=== PATIENT | female | born 1970 | race Caucasian/White ===

== ENCOUNTER 2023-12-04 15:35 | Emergency (ER) | payer BC, SELFPAY ==
[2023-12-04 15:37] VITALS: BP 150/101
[2023-12-04 16:01] LABS: % Basophils 0.9 % (0-2); % Eosinophils 5.6 % (0-6); % Immature Granulocytes 0.2 % (0-0.5); % Lymphocytes 26.7 % (20.5-51.1); % Monocytes 6.9 % (1.7-9.3); % Neutrophils 59.7 % (42.2-75.2); Absolute Basophils 0.1 10^3/uL (0-0.2); Absolute Eosinophils 0.5 10^3/uL (0-0.7); Absolute Lymphocytes 2.4 10^3/uL (1.2-3.4); Absolute Monocytes 0.6 10^3/uL (0.1-0.6); Absolute Neutrophils 5.4 10^3/uL (1.4-6.5); Hematocrit 42.8 % (37.0-47.0); Hemoglobin 14.8 g/dL (12.0-16.0); Mean Corp Hgb Conc. 34.6 g/dL (33.0-37.0); Mean Corpuscular Hgb 30.6 pg (27.0-31.0); Mean Corpuscular Volume 88.4 fL (81.0-99.0); Mean Platelet Volume 8.7 fL (7.4-10.4); Nucleated Red Blood Cells % 0 %; Platelet Count 308 10^3/uL (130-400); Red Blood Cell Count 4.84 10^6/uL (4.20-5.40); Red Cell Dist. Width 13.1 % (11.5-14.5); White Blood Cell Count 9.1 10^3/uL (4.8-10.8)
[2023-12-04 16:43] LABS: ALT (SGPT) 24 U/L (0-35); AST (SGOT) 28 U/L (14-36); Albumin 4.8 g/dl (3.5-5.0); Alkaline Phosphatase 41 U/L (38-126); Blood Urea Nitrogen 20 mg/dl (7-17); Calcium 9.9 mg/dl (8.4-10.2); Carbon Dioxide 23 mmol/L (22-30); Chloride 103 mmol/L (98-107); Glucose 282 mg/dl (70-99); Potassium 5.3 mmol/L (3.5-5.1); Sodium 138 mmol/L (135-145); Total Bilirubin 0.4 mg/dl (0.2-1.3); Total Protein 7.1 g/dl (6.3-8.2); eGFR > 60.00
[2023-12-04 16:54] LABS: Troponin I < 0.012 ng/ml
[2023-12-04] MEDS: PEPCID 40 MG PO (18:31)
[2023-12-04] MEDS: MAALOX 30 ML PO (18:31)
--- NOTE | 2023-12-04 18:32 | ED.GENMED ---
History of Present Illness
General
Chief Complaint: Abdominal Pain
Time Seen by Provider: 12/04/23 17:52
History of Present Illness
History of Present Illness:
Patient is a 53-year-old woman with history of cardiomyopathy, hypertension, hyperlipidemia, diabetes presenting to the emergency department with chest pain. Patient states for the past 3 days she is been having midsternal/epigastric chest pain.
Is slowly progressed. Is currently 4 out of 10. It is heaviness in nature. It is not exertional. She is never had exertional chest pain. No shortness of breath. No nausea or vomiting. She has had heartburn that is somewhat similar though not
entirely. No diaphoresis. No nausea or vomiting. No diarrhea. Has been compliant with all her medications.
Past History
Past History
ED Past Medical History: GERD, HTN, Hypercholesterolemia, NIDDM, Psychiatric (Anxiety/depression) and Other (Chronic bronchitis, pneumonia, cardiomyopathy)
ED Past Surgical History: , Gynecological (Tubal ligation), Orthopedic (Bilateral foot reconstruction) and Tonsilectomy
Social History
Tobacco: Smoker
Alcohol: None
Drug: None
Personal:
Living: with family
Employment: Employed
Family History
Family History: Other (father recently dx with cholecystitis)
Phy Exam
Physical Exam
Physical Exam:
GENERAL: in no acute distress
HEENT: normocephalic, extraocular movements intact, moist oral mucosa
NECK: normal inspection
RESPIRATORY: no respiratory distress, clear to auscultation bilaterally
CARDIOVASCULAR: regular rate and rhythm
ABDOMEN/: soft, non-distended, mild epigastric tenderness,, no rebound or guarding
EXTREMITIES: non-tender, no edema/swelling
NEUROLOGIC: awake and alert, moves all extremities
SKIN: warm
Course
Orders/Labs/Results
Orders:
Orders
12/04/23 15:42
Electrocardiogram (*1) Urgent
Reason for Study: Chest Pain
EKG- Treatment ONCE
12/04/23 15:51
Complete Blood Count/With Diff Urgent
Comprehensive Metabolic Panel Urgent
Lipase Urgent
Comment: ADDON
Troponin I Urgent
12/04/23 18:12
Add On- LAB Stat
Tests Added?: lipase
Famotidine [Pepcid] 40 mg PO NOW STA
Mag Hydrox/Al Hydrox/Simeth [Maalox] 30 ml PO NOW STA
Viscous Lidocaine 2% [Xylocaine Viscous Cup] 15 ml PO ONCE ONE
12/04/23 18:36
CR Chest - 2 Views Urgent
Comment:
Reason For Exam: chest pain
Abnormal Lab Results
12/04/23
15:51
Potassium 5.3 H mmol/L
(3.5-5.1)
BUN 20 H mg/dl
(7-17)
Glucose 282 H mg/dl
(70-99)
12/04/23 15:51
12/04/23 15:51
Vital Signs
Initial and Last Documented VS:
Initial Vital Signs
Temp Pulse Resp BP Pulse Ox
97.3 F 88 16 150/101 99
12/04/23 15:37 12/04/23 15:37 12/04/23 15:37 12/04/23 15:37 12/04/23 15:37
Last Documented Vital Signs
Temp Pulse Resp BP Pulse Ox
97.3 F 80 22 150/101 99
12/04/23 15:37 12/04/23 18:06 12/04/23 18:06 12/04/23 15:37 12/04/23 18:05
MDM/Problems Addressed
Differential Diagnosis Includes:
Patient is a 53-year-old woman with history of hypertension, hyperlipidemia, diabetes, cardiomyopathy, bronchitis presenting to the emergency department with epigastric/midsternal chest pain for the past 2 days that has been constant in nature and
it is not exertional. Vitals here notable for an elevated blood pressure. Exam does show mild epigastric tenderness. Differential is broad but consists of pancreatitis versus atypical ACS versus peptic ulcer disease versus biliary pathology.
Blood work obtained prior to evaluation is unremarkable. Will add on lipase. EKG per my interpretation normal sinus rhythm with left bundle branch block which is similar to prior. Will obtain chest x-ray. Will give GI cocktail. Consider
obtaining CT scan however will hold off at this time
*Critical Care Note
Total Time (30-74mins, 75-104mins- exclusive of procedures): Not Applicable
Update Note
Update Note:
Lipase normal. On reevaluation patient states the pain has completely resolved the GI cocktail. She does note that she has been eating increased red meat as well as lemon and rosebud in her water. She did have a metallic taste in her mouth earlier
as well. Patient advised on Pepcid and omeprazole. She will follow-up with her GI doctor as well as PCP for continued management. She has been tested for H. pylori and has been negative. Strict return precautions given. Will discharge at this
time.
ED Attending Note
-
Portions of this chart may have been created with voice recognition software.� Occasional wrong word or��sound alike� substitutions may have occurred due to the inherent limitations of voice recognition software.
Discharge Plan
Departure
Patient Disposition: Home (Routine Discharge)
Date of Disposition: 12/04/23
Time of Disposition: 19:54
Patient with high blood pressure during this ER visit?: Yes
Discharge Problem:
Epigastric abdominal pain
Instructions: Acid Reflux and GERD in Adults (DC)
Prescriptions:
No Action
lovastatin 40 MG tablet
20 mg PO DAILY
lamotrigine 25 MG tablet, chewable dispersible
75 mg PO DAILY
aspirin [Aspir-Low] 81 MG tablet,delayed release (DR/EC)
81 mg PO DAILY
glipizide 2.5 MG tablet extended release 24hr
15 mg PO DAILY
lisinopril 10 MG tablet
10 mg PO DAILY
naproxen sodium [Aleve] 220 MG tablet
220 mg PO Q6 PRN (Reason: pain)
cholecalciferol (vitamin D3) 2,000 UNIT tablet
5,000 unit PO DAILY
multivitamin [Multi-Day] 1 EACH tablet
10 tab PO DAILY
oxycodone-acetaminophen 5 MG/325 MG tablet
1 tab PO Q4HPRN PRN (Reason: Severe pain) Qty: 10 0RF
ibuprofen 600 MG tablet
600 mg PO Q6 Qty: 20 0RF
sucralfate [Carafate] 1 GM/10 ML suspension
1 gm PO ACHS Qty: 560 0RF
pantoprazole 40 MG tablet,delayed release (DR/EC)
40 mg PO DAILY Qty: 30 0RF
ketorolac 10 MG tablet
10 mg PO TID Qty: 7 0RF
Rx Instructions:
do not combine with any other NSAIDS
levofloxacin 750 mg tablet
750 mg PO DAILY 7 Days Qty: 7 0RF
metronidazole 500 mg tablet
500 mg PO BID 7 Days Qty: 14 0RF
Referrals:
Fadia Hall MD [Family Provider] -
Activity Restrictions/Additional Instructions:
You were evaluated in the Emergency Department today for epigastric pain, which is most likely due to irritation of the lining of your stomach. Your symptoms improved with medication in the ED. You can take Mylanta, which is available over the
counter, to help manage your symptoms. Please also take Pepcid and omeprazole as discussed avoid spicy or acidic foods.
Please follow up with your primary care physician within two days.
Return to the Emergency Department if you experience shortness of breath, worsening or uncontrolled abdominal or chest pain, headache, light headedness, feeling faint, nausea, vomiting, bloody vomit or stools, black tarry stools, or any other
concerning symptoms.
Thank you for choosing us for your care.
Interventions
Interventions:
*General Assessment Last Done: 12/04/23 15:37
*Neglect/Abuse Screening Last Done: 12/04/23 15:37
*ED COVID-19 Vaccine History Last Done: 12/04/23 15:37
OM-Hyqagf-Achjsjumck Assessment Last Done: 12/04/23 18:37
Discharge Date and Time
Print Language: AMHARIC
[2023-12-04] MEDS: XYLOCAINE VISCOUS CUP 15 ML PO (18:33)
[2023-12-04 18:35] VITALS: BMI 37.0
[2023-12-04 18:37] VITALS: BP 143/83
[2023-12-04 18:45] LABS: Lipase 193 U/L (23-300)
== END 2023-12-04 20:25 | disposition home or self-care (01) ==
LOC: EMR 15:35
PROVIDERS: Physician Assistant; EMERGENCY PHYSICIAN Student in an Organized Health Care Education/Training Program; FAMILY PHYSICIAN Internal Medicine
DX: R07.89 Other chest pain (principal); E11.9 Type 2 diabetes mellitus without complications; E78.00 Pure hypercholesterolemia, unspecified; I10 Essential (primary) hypertension; I42.9 Cardiomyopathy, unspecified; K21.9 Gastro-esophageal reflux disease without esophagitis; F17.200 Nicotine dependence, unspecified, uncomplicated; Z98.51 Tubal ligation status
CPT/HCPCS: 99283; 71046; 80053; 83690; 84484; 85025; 93005

== ENCOUNTER → 2024-04-05 06:59 | Outpatient (REF) | payer BC, SELFPAY | LOC: WDC 06:59 | PROVIDERS: ATTENDING PHYSICIAN Obstetrics & Gynecology Gynecology; FAMILY PHYSICIAN Internal Medicine | DX: Z12.31 Encounter for screening mammogram for malignant neoplasm of breast (principal) | CPT/HCPCS: 77063; 77067 ==

== ENCOUNTER 2024-10-19 10:13 | Emergency (ER) | payer OTHER, SELFPAY ==
[2024-10-19 10:21] VITALS: BP 165/96
[2024-10-19 10:46] LABS: Hematocrit 42.7 % (37.0-47.0); Hemoglobin 14.6 g/dL (12.0-16.0); Mean Corp Hgb Conc. 34.2 g/dL (33.0-37.0); Mean Corpuscular Volume 89.9 fL (81.0-99.0); Nucleated Red Blood Cells % 0 %; Platelet Count 268 10^3/uL (130-400); Red Cell Dist. Width 12.8 % (11.5-14.5)
[2024-10-19 11:07] LABS: ALT (SGPT) 18 U/L (0-35); AST (SGOT) 20 U/L (14-36); Albumin 4.6 g/dl (3.5-5.0); Alkaline Phosphatase 40 U/L (38-126); Blood Urea Nitrogen 10 mg/dl (7-17); Calcium 9.4 mg/dl (8.4-10.2); Carbon Dioxide 25 mmol/L (22-30); Chloride 107 mmol/L (98-107); Glucose 212 mg/dl (70-99); Potassium 4.8 mmol/L (3.5-5.1); Sodium 138 mmol/L (135-145); Total Protein 6.8 g/dl (6.3-8.2); eGFR > 60.00
--- NOTE | 2024-10-19 11:17 | ED.GENMED ---
History of Present Illness
General
Chief Complaint: Headache
Source: patient
Exam Limitations: none
Time Seen by Provider: 10/19/24 11:01
Nursing documentation reviewed up to this point in time: agreed with
History of Present Illness
History of Present Illness:
54-year-old female diabetic hypertensive headache yesterday gradual onset did vomit x 1 nausea lights do bother her eyes mildly, does not typically get a lot of headaches has had some mosquito bites no known tick bites, has been out in the heat a
lot recently blood sugars have been high recently, no slurred speech no arm or leg weakness no chest pain or shortness of breath, patient does have some sinus congestion
Past History
Past History
ED Past Medical History: GERD, HTN, Hypercholesterolemia, NIDDM, Psychiatric (Anxiety/depression) and Other (Chronic bronchitis, pneumonia, cardiomyopathy)
ED Past Surgical History: , Gynecological (Tubal ligation), Orthopedic (Bilateral foot reconstruction) and Tonsilectomy
Social History
Tobacco: Smoker
Alcohol: None
Drug: None
Personal:
Living: with family
Employment: Employed
Review of Systems
Review of Systems
All Other Systems: Not applicable
Constitutional: Denies fever
EENT: Reports other (Sinus congestion)
Respiratory: Reports no symptoms
Cardiac: Denies chest pain
ABD/GI: Reports nausea and vomiting
Musculoskeletal: Reports no symptoms
Skin: Reports no symptoms
Neurological: Reports headache
Psychiatric: Reports no symptoms
Phy Exam
Physical Exam
Physical Exam:
Physical Exam
General: no apparent distress, not acutely ill
Neck: Nasally voice
Heart: s1/s2 regular rate and rhythm, no murmur. equal radial pulses.
Lungs: no acute respiratory distress. clear bilaterally
Abdomen: Nontender
Neuro: alert and oriented. no focal neurological deficits
Skin: no rash
Psychiatric: well kept. interactive and cooperative
Extremities: no edema.
Course
Orders/Labs/Results
Orders:
Orders
10/19/24 10:34
Complete Blood Count/With Diff Urgent
Comprehensive Metabolic Panel Urgent
10/19/24 11:17
CT Sinuses W/o Iv Contrast Urgent
Comment:
Reason For Exam: headacge
IV Insert/Care/Rem.- Treatment PRN
0.9% Sodium Chloride 1000 ml [Nss] 1,000 ml IV BOLUS
10/19/24 11:18
CT Head W/o Iv Contrast Urgent
Comment:
Reason For Exam: headacge
Ondansetron Injectable [Zofran] 4 mg IV NOW STA
10/19/24 12:09
Lyme Progressive Urgent
10/19/24 13:48
Acetaminophen [Tylenol] 650 mg PO NOW STA
Ketorolac [Toradol] 30 mg IV NOW STA
Abnormal Lab Results
10/19/24
10:34
Lymphocytes % 19.0 L %
(20.5-51.1)
Glucose 212 H mg/dl
(70-99)
10/19/24 10:34
10/19/24 10:34
Vital Signs
Initial and Last Documented VS:
Initial Vital Signs
Temp Pulse Resp BP Pulse Ox
98.3 F 80 18 165/96 94
10/19/24 10:21 10/19/24 10:21 10/19/24 10:21 10/19/24 10:21 10/19/24 10:21
Last Documented Vital Signs
Temp Pulse Resp BP Pulse Ox
98.3 F 75 16 150/68 99
10/19/24 10:21 10/19/24 13:39 10/19/24 13:39 10/19/24 13:39 10/19/24 13:39
MDM/Problems Addressed
Differential Diagnosis Includes:
Tension, sinus headache, migraine headache, doubt subarachnoid or ELEVATOR [employer]ENDANT infection
MDM/Problems Addressed:
Headache nausea vomit
Chronic conditions affecting care: DM and HTN
Acute Exacerbation and/or Progression of Chronic Illness: DM and HTN
*Pulse Oximetry
SaO2: 94
Oxygen Mode of Delivery: Room air
Patient hypoxic: no
*Critical Care Note
Total Time (30-74mins, 75-104mins- exclusive of procedures): Not Applicable
Update Note
Update Note:
Update labs noted CT reports noted
215, patient feeling better smiling eating, still says she has a mild headache ordered some Toradol reviewed sinusitis with her, like to hold off on systemic steroids as she is diabetic
ED Attending Note
-
Portions of this chart may have been created with voice recognition software.� Occasional wrong word or��sound alike� substitutions may have occurred due to the inherent limitations of voice recognition software.
Discharge Plan
Departure
Patient Disposition: Home (Routine Discharge)
Date of Disposition: 10/19/24
Time of Disposition: 14:26
Patient with high blood pressure during this ER visit?: No
Condition: Good
Discharge Problem:
Sinusitis
Instructions: Headache, Adult (DC), Sinusitis in adults - ED discharge instructions
Prescriptions:
New
amoxicillin-pot clavulanate 875-125 mg tablet
1 tab PO BID Qty: 14 0RF
mometasone [Nasonex 24hr Allergy] 50 mcg/actuation spray,non-aerosol
2 spray intranasal DAILY Qty: 17 2RF
ibuprofen 600 mg tablet
600 mg PO Q6H PRN (Reason: Pain) Qty: 20 0RF
Excedrin Tension Headache 500-65 mg tablet
2 tab PO Q6H PRN (Reason: Pain) Qty: 60 0RF
No Action
lovastatin 40 MG tablet
20 mg PO DAILY
lamotrigine 25 MG tablet, chewable dispersible
75 mg PO DAILY
aspirin [Aspir-Low] 81 MG tablet,delayed release (DR/EC)
81 mg PO DAILY
glipizide 2.5 MG tablet extended release 24hr
15 mg PO DAILY
lisinopril 10 MG tablet
10 mg PO DAILY
naproxen sodium [Aleve] 220 MG tablet
220 mg PO Q6 PRN (Reason: pain)
cholecalciferol (vitamin D3) 2,000 UNIT tablet
5,000 unit PO DAILY
multivitamin [Multi-Day] 1 EACH tablet
10 tab PO DAILY
oxycodone-acetaminophen 5 MG/325 MG tablet
1 tab PO Q4HPRN PRN (Reason: Severe pain) Qty: 10 0RF
ibuprofen 600 MG tablet
600 mg PO Q6 Qty: 20 0RF
sucralfate [Carafate] 1 GM/10 ML suspension
1 gm PO ACHS Qty: 560 0RF
pantoprazole 40 MG tablet,delayed release (DR/EC)
40 mg PO DAILY Qty: 30 0RF
ketorolac 10 MG tablet
10 mg PO TID Qty: 7 0RF
Rx Instructions:
do not combine with any other NSAIDS
levofloxacin 750 mg tablet
750 mg PO DAILY 7 Days Qty: 7 0RF
metronidazole 500 mg tablet
500 mg PO BID 7 Days Qty: 14 0RF
Referrals:
Fadia Hall MD [Family Provider, Internal Medicine] - Next open appointment
Interventions
Interventions:
*Risk Screen - Suicide Last Done: 10/19/24 10:23
*General Assessment Last Done: 10/19/24 10:23
*ED COVID-19 Vaccine History Last Done: 10/19/24 10:23
ED- Neurological Assessment Last Done: 10/19/24 12:08
Discharge Date and Time
Print Language: BENINESE
[2024-10-19] MEDS: NSS 1000 IV (12:08)
[2024-10-19] MEDS: ZOFRAN 4 MG IV (12:08)
[2024-10-19 13:39] VITALS: BP 150/68
[2024-10-19] MEDS: TYLENOL 650 MG PO (14:12)
[2024-10-19] MEDS: TORADOL 30 MG IV (14:13)
[2024-10-19 15:12] VITALS: BP 141/81
== END 2024-10-19 15:20 | disposition home or self-care (01) ==
LOC: EMR 10:13
PROVIDERS: Emergency Medicine; EMERGENCY PHYSICIAN Emergency Medicine; FAMILY PHYSICIAN Internal Medicine
DX: J32.9 Chronic sinusitis, unspecified (principal); E11.9 Type 2 diabetes mellitus without complications; I10 Essential (primary) hypertension; E78.00 Pure hypercholesterolemia, unspecified; I42.9 Cardiomyopathy, unspecified; K21.9 Gastro-esophageal reflux disease without esophagitis; J42 Unspecified chronic bronchitis; F41.9 Anxiety disorder, unspecified; F32.A Depression, unspecified; F17.200 Nicotine dependence, unspecified, uncomplicated; Z79.82 Long term (current) use of aspirin; Z79.84 Long term (current) use of oral hypoglycemic drugs
CPT/HCPCS: 99284; 96374; 96375; 96361; 70450; 70486; 80053; 85025; 86618